=== PATIENT | female | born 1950 | race Caucasian/White ===

== ENCOUNTER → 2021-10-20 10:32 | Outpatient (BNVA) | payer MEDICARE, SELFPAY | PROVIDERS: Visit Provider Family Medicine | DX: E78.00 Pure hypercholesterolemia, unspecified (principal); I10 Essential (primary) hypertension; E03.8 Other specified hypothyroidism; M19.90 Unspecified osteoarthritis, unspecified site | CPT/HCPCS: 80053; 80061; 84443; 85025 ==

== ENCOUNTER 2021-11-30 08:54 | Outpatient (CLI) | payer MEDICARE, SELFPAY ==
--- NOTE | 2021-11-30 09:30 | MR_ITS ---
WS: [id number] MRI HEAD WITHOUT CONTRAST TECHNIQUE: Sagittal T1, T2 axial, T2 axial FLAIR, axial and coronal T1 images, axial susceptibility w eighted imaging, axial diffusion weighted images, and coronal T2 images were obtained. CLINICAL INFORMATION: changes in vision and headaches COMPARISON: None. FINDINGS: No evidence of restricted diffusion to suggest acute ischemia. Ventricular system and basal cisterns are patent. Mild small vessel changes. Moderate parenchymal volume loss. Normal posterior fossa. Norm al vascular flow voids at the skull base. No extra-axial fluid collections. No evidence of mass or ma ss effect. Paranasal sinuses and mastoid air cells well aerated. No hemosiderin on susceptibly weighted images. Mild to moderate symmetric atrophy temporal lobes and hippocampal formations. Normal optic chiasm and pituitary infundibulum. Paranasal sinuses and mastoid air cells well aerated. Mild mucosal thickening in the ethmoid air cells. MR/MR head wo con* [id number] IMPRESSION: 1. No evidence of restricted diffusion to suggest acute ischemia. 2. Mild small vessel changes with moderate parenchymal volume loss. 3. No hemosiderin on susceptibly weighted images. 4. Mild/moderate symmetric atrophy atrophy temporal lobes and hippocampal form ations. 5. No other significant findings.
== END 2021-11-30 08:55 | disposition home or self-care (01) ==
PROVIDERS: Visit Provider Family Medicine
DX: S09.90XA Unspecified injury of head, initial encounter (principal); H54.7 Unspecified visual loss; R42 Dizziness and giddiness; R51.9 Headache, unspecified; G31.9 Degenerative disease of nervous system, unspecified
CPT/HCPCS: 70551

== ENCOUNTER → 2021-12-21 11:12 | Outpatient (BNVA) | payer MEDICARE, SELFPAY | PROVIDERS: Referring Provider Family Medicine; Visit Provider Nurse Practitioner | DX: H93.A9 Pulsatile tinnitus, unspecified ear (principal); G44.329 Chronic post-traumatic headache, not intractable; Z87.891 Personal history of nicotine dependence | CPT/HCPCS: 99204 ==

== ENCOUNTER 2022-01-30 10:43 | Emergency (ER) | payer MEDICARE, SELFPAY ==
[2022-01-30 10:57] VITALS: BP 106/62; PULSE 109; RESP 16; TEMP 38.1; O2SAT 96; BMI 25.4
[2022-01-30 11:12] VITALS: BP 131/56; PULSE 103; O2SAT 94
--- NOTE | 2022-01-30 11:29 | ECG_ITS ---
[facility] Test Date: 2022-01-30 Pat Name: Juliana Rendon Department: Room: Gender: Female [employer]: : 1950 Requested By: Jayden Soni Order Number: [id number] Clyde MD: Jerrica Pang M.D. Measurements Intervals [place] Rate: 87 P: 63 MN: 151 QRS: 51 QRSD: 75 T: 56 QT: 354 QTc: 428 Interpretive Statements SINUS RHYTHM POSSIBLE LEFT ATRIAL ENLARGEMENT [-0.1mV P-WAVE IN V1/V2] SEPTAL MYOCARDIAL INFARCTION , OF INDETERMINATE AGE [40+ ms Q WAVE IN V1/V2] MODERATE T-WAVE ABNORMALITY, CONSIDER LATERAL ISCHEMIA [-0.1+ mV T-WAVE IN I/aVL/V5/V6] No previous ECG available for comparison Electronically Signed On 01-30-2022 19:03:10 CDT by Jerrica Pang M.D. [id number]
--- NOTE | 2022-01-30 11:29 | CTR_ITS ---
PROCEDURE INFORMATION: Exam: CT Angiography Head With Contrast, Arteriography Exam date and time: 01/30/2022 3:37 PM Age: 71 years old Clinical indication: Pain; Headache; Additional info: Concern for aneurysm TECHNIQUE: Imaging protocol: Computed tomography angiography of the head with contrast. Exam focused on the arteries. 3D rendering (Not supervised by radiologist): MIP and/or 3D reconstructed images were created by the technologist. Radiation optimization: All CT scans at this facility use at least one of these dose optimization techniques: automated exposure control; mA and/or kV adjustment per patient size (includes targeted exams where dose is matched to clinical indication); or iterative reconstruction. Contrast material: VISIPAQUE 320; Contrast volume: 95 ml; Contrast route: INTRAVENOUS (IV); COMPARISON: MR head wo con* [id number] 11/30/2021 10:27 AM RADIATION DOSE METRICS: Total DLP (mGy-cm): 2349.05 FINDINGS: ANTERIOR CIRCULATION: Right internal carotid artery: Unremarkable. Intracranial segment is patent with no significant stenosis. No aneurysm. Right middle cerebral artery: Unremarkable. No occlusion or significant stenosis. No aneurysm. Right anterior cerebral artery: Unremarkable. No occlusion or significant stenosis. No aneurysm. Left internal carotid artery: Unremarkable. Intracranial segment is patent with no significant stenosis. No aneurysm. Left middle cerebral artery: Unremarkable. No occlusion or significant stenosis. No aneurysm. Left anterior cerebral artery: Unremarkable. No occlusion or significant stenosis. No aneurysm. POSTERIOR CIRCULATION: Right vertebral artery: Unremarkable. No occlusion or significant stenosis. No aneurysm. Left vertebral artery: Unremarkable. No occlusion or significant stenosis. No aneurysm. Basilar artery: Unremarkable. No occlusion or significant stenosis. No aneurysm. Right posterior cerebral artery: Unremarkable. No occlusion or significant stenosis. No aneurysm. Left posterior cerebral artery: Unremarkable. No occlusion or significant stenosis. No aneurysm. Brain: No definite mass, mass effect, or midline shift. Cerebral ventricles: No ventriculomegaly. Bones/joints: Unremarkable. No acute fracture. Soft tissues: Unremarkable. PROCEDURE INFORMATION: Exam: CT Angiography Neck With Contrast Exam date and time: 01/30/2022 3:37 PM Age: 71 years old Clinical indication: Pain; Headache; Additional info: Concern for aneurysm TECHNIQUE: Imaging protocol: Computed tomography angiography of the neck with contrast. 3D rendering (Not supervised by radiologist): MIP and/or 3D reconstructed images were created by the technologist. Radiation optimization: All CT scans at this facility use at least one of these dose optimization techniques: automated exposure control; mA and/or kV adjustment per patient size (includes targeted exams where dose is matched to clinical indication); or iterative reconstruction. Contrast material: VISIPAQUE 320; Contrast volume: 95 ml; Contrast route: INTRAVENOUS (IV); COMPARISON: MR giovanna alicia* [id number] 11/30/2021 10:27 AM RADIATION DOSE METRICS: Total DLP (mGy-cm): 2349.05 FINDINGS: Right common carotid artery: No stenosis. No dissection or occlusion. Right internal carotid artery: No stenosis of the extracranial segment. No dissection or occlusion. Right external carotid artery: No occlusion or stenosis of the origin. Left common carotid artery: No stenosis. No dissection or occlusion. Left internal carotid artery: No stenosis of the extracranial segment. No dissection or occlusion. Left external carotid artery: No occlusion or stenosis of the origin. Right vertebral artery: No stenosis. No dissection or occlusion. Left vertebral artery: No stenosis. No dissection or occlusion. Soft tissues: Normal. No significant soft tissue swelling. Bones/joints: No acute fracture. CT/CT angio headneck* [id number] IMPRESSION: No large vessel stenosis or occlusion. IMPRESSION: No evidence of aneurysm. No stenosis or occlusion. REFERENCES: NASCET CRITERIA. The degree of internal carotid artery stenosis is based on NASCET criteria. Normal is no stenosis. Mild is less than 50% stenosis. Moderate is 50-69% stenosis. Severe is 70% to 99% stenosis. Total occlusion is no detectable patent lumen.
--- NOTE | 2022-01-30 11:31 | W.ED.FALL ---
HPI - Fall General: Chief Complaint: Fall Stated Complaint: fall/dizziness/buzzing in head/balance issues Time Seen by Provider: 01/30/22 11:21 History of Present Illness: Patient comes in with a buzzing sensation in her head. States that it has been there for a couple years constant. States that this morning when it was happening she felt weak and dizzy and had to sit down. States that she has had a head CT through her primary care physician and is supposed to be scheduled for CTA head and neck. Associated symptoms-after fall: Denies abdominal pain, chest pain, headache(s) or neck pain Review of Systems Const: Denies: fever(s) or body aches Eyes: Denies: change in vision or blurry vision ENMT: Denies: throat pain or odynophagia Card: Denies: chest pain or palpitations Resp: Denies: dyspnea or productive cough GI: Denies: abdominal pain, nausea or vomiting : Denies: flank pain or dysuria Musc: Denies: neck pain or back pain Skin/Breast: Denies: rash or pruritus Neuro: Denies: headache(s) or numbness in extremities Psych: Denies: anxiety or change in appetite Endo: Denies: polyuria or excessive sweating PFSH ED PFSH: Medical History Alteration in vision Arthritis Head trauma Headache above the eye region Hypercholesteremia Hypertension Hypothalamic hypothyroidism Vertigo Social History Smoking and tobacco status: former smoker Alcohol intake: former Physical Exam Const: COMMON NORMALS: no acute distress, patient oriented x3, healthy appearing and alert HENMT: COMMON NORMALS: normocephalic and atraumatic HEAD & SCALP: normocephalic and atraumatic Eye: COMMON NORMALS: Equal, round and reactive pupils present and EOMs intact bilaterally PUPIL: Yes Equal, round and reactive pupils present Neck/C-Spine: COMMON NORMALS: full ROM and supple Resp: COMMON NORMALS: normal respiratory effort, No retractions and No use of accessory muscles Cardio: COMMON NORMALS: regular rhythm RHYTHM: regular rhythm OTHER: Tachycardia GI: COMMON NORMALS: Normal to inspection, nondistended, normoactive bowel sounds present, Soft to palpation and non-tender PALPATION: Yes Soft to palpation Back/Pelvis: COMMON NORMALS: thoracic and lumbar spine normal to inspection and no thoracic nor lumbar tenderness Extremity: COMMON NORMALS: normal to inspection and full ROM Neuro: COMMON NORMALS: patient oriented x3 SENSORIUM/ORIENTATION: Yes alert Psych: COMMON NORMALS: mental status grossly normal and cooperative Skin: COMMON NORMALS: no rashes or lesions noted and no wounds GENERAL SKIN EXAM: no rashes or lesions noted Course Vital Signs: Vital signs: Vital Signs Temperature 100.6 F H 01/30/22 10:57 Pulse Rate 103 H 01/30/22 11:12 Respiratory Rate 16 01/30/22 10:57 Blood Pressure 131/56 01/30/22 11:12 Pulse Oximetry 94 01/30/22 11:12 MDM - Fall Medical Decision Making Patient comes in with a buzzing sensation in her head. States that it has been there for a couple years constant. States that this morning when it was happening she felt weak and dizzy and had to sit down. States that she has had a head CT through her primary care physician and is supposed to be scheduled for CTA head and neck. On physical exam she is tachycardic. She has a grossly normal neuro exam with no lateralizing symptoms. We will check labs, EKG, CTA head and neck, and reassess. On reassessment I talked to the patient about the test results. Will discharge home at this time with precautions to return for worsening or changing symptoms. Lab Data : 01/30/22 12:30 01/30/22 14:09 Radiology Impressions Head/Neck CTA 01/30/22 11:29 IMPRESSION: No large vessel stenosis or occlusion. IMPRESSION: No evidence of aneurysm. No stenosis or occlusion. REFERENCES: NASCET CRITERIA. The degree of internal carotid artery stenosis is based on NASCET criteria. Normal is no stenosis. Mild is less than 50% stenosis. Moderate is 50-69% stenosis. Severe is 70% to 99% stenosis. Total occlusion is no detectable patent lumen. Laboratory Results WBC 14.5 10^3/uL (4.0-10.0) H 01/30/22 12:30 RBC 4.05 10^6/uL (4.1-5.3) L 01/30/22 12:30 Hgb 12.5 g/dL (11.5-15.3) 01/30/22 12:30 Hct 37.7 % (37.0-47.0) 01/30/22 12:30 MCV 93.1 fl (81-99) 01/30/22 12:30 MCH 30.9 pg (28.0-34.0) 01/30/22 12:30 MCHC 33.2 g/dL (30.0-36.0) 01/30/22 12:30 RDW 13.0 % (12.1-15.1) 01/30/22 12:30 Plt Count 245 10^3/cmm (130-400) 01/30/22 12:30 MPV 9.6 fL (7.4-10.4) 01/30/22 12:30 Neut % (Auto) 79.6 % 01/30/22 12:30 Lymph % (Auto) 9.2 % 01/30/22 12:30 [place] % (Auto) 10.1 % 01/30/22 12:30 Eos % (Auto) 0.1 % 01/30/22 12:30 Baso % (Auto) 0.2 % 01/30/22 12:30 Neut # (Auto) 11.52 10^3/uL (1.8-7.7) H 01/30/22 12:30 Lymph # (Auto) 1.3 10^3/uL (0.8-4.8) 01/30/22 12:30 [place] # (Auto) 1.5 10^3/uL (0.2-0.9) H 01/30/22 12:30 Eos # (Auto) 0.0 10^3/uL (0.0-0.8) 01/30/22 12:30 Baso # (Auto) 0.0 10^3/uL (0.0-0.1) 01/30/22 12:30 Nucleated RBC % (auto) 0 % 01/30/22 12:30 Nucleated RBCs # 0.0 /100WBC 01/30/22 12:30 Sodium 139 mmol/L (136-145) 01/30/22 14:09 Potassium 3.6 mmol/L (3.5-5.1) 01/30/22 14:09 Chloride 104 mmol/L (98-107) 01/30/22 14:09 Carbon Dioxide 20 mmol/L (22-29) L 01/30/22 14:09 Anion Gap 18.6 (5-19) 01/30/22 14:09 BUN 14 mg/dL (8-23) 01/30/22 14:09 Creatinine 1.0 mg/dL (0.5-0.9) H 01/30/22 14:09 GFR Calculation 54.8 mL/min (90-130) L 01/30/22 14:09 Glucose 112 mg/dL (65-115) 01/30/22 14:09 Calculated Osmolality 289 mOsm/kg (285-295) 01/30/22 14:09 Calcium 8.5 mg/dL (8.5-10.5) 01/30/22 14:09 Total Bilirubin 0.8 mg/dL (0.15-1.2) 01/30/22 14:09 AST 15 U/L (0-32) 01/30/22 14:09 ALT 14 U/L (0-33) 01/30/22 14:09 Alkaline Phosphatase 66 IU/L (35-105) 01/30/22 14:09 NT-Pro-B Natriuret Pep Cancelled 01/30/22 14:09 Total Protein 8.0 g/dL (6.6-8.7) 01/30/22 14:09 Albumin 3.9 g/dL (3.5-5.2) 01/30/22 14:09 Globulin 4.1 g/dL (1.3-4.6) 01/30/22 14:09 Discharge Plan Discharge Patient Disposition: Home Clinical Impression: Dizziness Condition: Stable Prescriptions: No Action omeprazole 20 mg capsule,delayed release(DR/EC) 20 mg PO DAILY 0RF gabapentin 600 mg tablet 600 mg PO BID 0RF levothyroxine 88 mcg tablet 88 mcg PO DAILY 0RF losartan 100 mg tablet 100 mg PO DAILY 0RF meloxicam 15 mg tablet 15 mg PO DAILY 0RF simvastatin 20 mg tablet 20 mg PO DAILY 0RF multivitamin with minerals [Hair,Skin and Nails] Tablet 1 tab PO DAILY 0RF amitriptyline 25 mg tablet 25 mg PO BEDTIME Qty: 30 2RF alprazolam 0.5 mg tablet 0.5 mg PO .bed time PRN (Reason: sleep) Qty: 30 2RF Rx Instructions: recommend no more than 4 nights/week cyanocobalamin (vitamin B-12) 1,000 mcg/mL solution 1,000 mcg IM DAILY Qty: 10 1RF Discharge Orders: Discharge ED (Routine); Ordered 01/30/22 Ordered By: Jayden Soni Referrals: Aldo Diaz MD [Primary Care Provider] - Coding Level of Care Code ED Tool Grinder Operator External for Chg Fwd Exam Comprehensive
[2022-01-30] MEDS: sodium chloride 0.9% 500 ML 999 ML IV (12:27)
[2022-01-30 12:36] LABS: Basophils % 0.2 %; Eosinophils % 0.1 %; Hematocrit 37.7 % (37.0-47.0); Hemoglobin 12.5 g/dL (11.5-15.3); Lymphocytes # 1.3 10^3/uL (0.8-4.8); Lymphocytes % 9.2 %; Mean Corpuscular HGB Conc 33.2 g/dL (30.0-36.0); Mean Corpuscular Hemoglobin 30.9 pg (28.0-34.0); Mean Corpuscular Volume 93.1 fl (81-99); Mean Platelet Volume 9.6 fL (7.4-10.4); Monocytes # 1.5 10^3/uL (0.2-0.9); Monocytes % 10.1 %; Neutrophils # 11.52 10^3/uL (1.8-7.7); Neutrophils % 79.6 %; Nucleated Red Blood Cells % 0 %; Platelet Count 245 10^3/cmm (130-400); Red Blood Count 4.05 10^6/uL (4.1-5.3); White Blood Count 14.5 10^3/uL (4.0-10.0)
[2022-01-30 15:13] LABS: Alanine Aminotransferase 14 U/L (0-33); Albumin Level 3.9 g/dL (3.5-5.2); Alkaline Phosphatase 66 IU/L (35-105); Anion Gap 18.6 (5-19); Aspartate Amino Transferase 15 U/L (0-32); Blood Urea Nitrogen 14 mg/dL (8-23); Calcium 8.5 mg/dL (8.5-10.5); Carbon Dioxide 20 mmol/L (22-29); Chloride 104 mmol/L (98-107); Globulin 4.1 g/dL (1.3-4.6); Glomerular Filtration Rate 54.8 mL/min (90-130); Glucose 112 mg/dL (65-115); Osmolality Calculated 289 mOsm/kg (285-295); Potassium 3.6 mmol/L (3.5-5.1); Sodium 139 mmol/L (136-145); Total Bilirubin 0.8 mg/dL (0.15-1.2)
[2022-01-30] MEDS: iodixanol 320 mg/mL 100mL Btl IV (15:43)
== END 2022-01-30 17:20 | disposition home or self-care (01) ==
PROVIDERS: Emergency Provider Emergency Medicine; PCP Family Medicine
DX: R42 Dizziness and giddiness (principal); R51.9 Headache, unspecified; R26.89 Other abnormalities of gait and mobility; R53.1 Weakness
CPT/HCPCS: 70496; 70498; 80053; 85025; 93005; 96360; 99284; J7040; Q9967

== ENCOUNTER → 2022-04-27 14:29 | Outpatient (BNVA) | payer MEDICARE, SELFPAY | PROVIDERS: PCP Family Medicine; Visit Provider Family Medicine | DX: E78.00 Pure hypercholesterolemia, unspecified (principal); E03.8 Other specified hypothyroidism; I10 Essential (primary) hypertension; M47.812 Spondylosis without myelopathy or radiculopathy, cervical region; M47.816 Spondylosis without myelopathy or radiculopathy, lumbar region; G47.00 Insomnia, unspecified | CPT/HCPCS: 80053; 80061; 84443 ==

== ENCOUNTER → 2022-05-10 13:21 | Outpatient (BNVA) | payer MEDICARE, SELFPAY | PROVIDERS: PCP Family Medicine; Visit Provider Family Medicine | DX: Z00.00 Encounter for general adult medical examination without abnormal findings (principal) | CPT/HCPCS: 82270 ==

== ENCOUNTER → 2023-01-27 08:41 | Outpatient (BNVA) | payer MEDICARE, SELFPAY | PROVIDERS: PCP Family Medicine; Visit Provider Family Medicine | DX: E53.8 Deficiency of other specified B group vitamins (principal); E03.8 Other specified hypothyroidism; G47.00 Insomnia, unspecified | CPT/HCPCS: 82607; 84443 ==

== ENCOUNTER → 2023-05-25 13:09 | Outpatient (BNVA) | payer MEDICARE, SELFPAY | PROVIDERS: PCP Family Medicine; Visit Provider Family Medicine | DX: B37.31 Acute candidiasis of vulva and vagina (principal); N95.2 Postmenopausal atrophic vaginitis | CPT/HCPCS: 81000 ==

== ENCOUNTER 2023-08-17 12:05 | Outpatient (CLI) | payer MEDICARE, MEDICAID, SELFPAY ==
--- NOTE | 2023-08-17 12:45 | USR_ITS ---
PROCEDURE INFORMATION: Exam: US Nonobstetric Pelvis; Complete Exam date and time: 08/17/2023 1:06 PM Age: 73 years old Clinical indication: Pelvic pain; Additional info: N93.9 - abnormal uterine and vaginal bleeding, unspecified TECHNIQUE: Imaging protocol: Transabdominal pelvic nonobstetric ultrasound. Complete exam. Real time ultrasound with image documentation. COMPARISON: No relevant prior studies available. FINDINGS: Uterus: Uterus is normal. Endometrial stripe is normal. Endometrial stripe measures 3 mm. Uterus measures 5.7 x 2.4 x 3.6 cm. Right ovary/adnexa: Not visualized. Left ovary/adnexa: Not visualized. Probable cystic structure within the left adnexal region measuring 2.5 x 2.4 x 2.6 cm. Intraperitoneal space: No intraperitoneal fluid. Urinary bladder: Normal. US/US pelvic complete* [id number] IMPRESSION: No acute findings.
== END 2023-08-17 12:06 | disposition home or self-care (01) ==
LOC: RAD 12:06
PROVIDERS: PCP Family Medicine; Visit Provider Family Medicine
DX: N93.9 Abnormal uterine and vaginal bleeding, unspecified (principal); N95.2 Postmenopausal atrophic vaginitis
CPT/HCPCS: 76856

== ENCOUNTER → 2023-09-28 16:36 | Outpatient (BNVA) | payer MEDICARE, MEDICAID, SELFPAY | PROVIDERS: PCP Family Medicine; Visit Provider Family Medicine | DX: I10 Essential (primary) hypertension (principal); E03.8 Other specified hypothyroidism; E78.00 Pure hypercholesterolemia, unspecified; Z12.83 Encounter for screening for malignant neoplasm of skin | CPT/HCPCS: 80053; 80061; 84443; 85025 ==

== ENCOUNTER → 2024-03-13 09:04 | Outpatient (BNVA) | payer MEDICARE, MEDICAID, SELFPAY | PROVIDERS: PCP Family Medicine; Visit Provider Podiatrist Foot & Ankle Surgery | DX: M79.671 Pain in right foot (principal); M79.672 Pain in left foot | CPT/HCPCS: 73630; 99203 ==

== ENCOUNTER → 2024-06-28 15:33 | Outpatient (BNVA) | payer MEDICARE, MEDICAID, SELFPAY | PROVIDERS: PCP Family Medicine; Visit Provider Family Medicine | DX: I10 Essential (primary) hypertension (principal); E78.00 Pure hypercholesterolemia, unspecified | CPT/HCPCS: 80053; 84443; 85025 ==

== ENCOUNTER → 2024-10-30 09:52 | Outpatient (BNVA) | payer MEDICARE, MEDICAID, SELFPAY | PROVIDERS: PCP Family Medicine; Visit Provider Family Medicine | DX: E03.8 Other specified hypothyroidism (principal) | CPT/HCPCS: 84443 ==

== ENCOUNTER → 2025-05-02 15:06 | Outpatient (BNVA) | payer MEDICARE, MEDICAID, SELFPAY | PROVIDERS: PCP Family Medicine; Visit Provider Family Medicine | DX: I10 Essential (primary) hypertension (principal) | CPT/HCPCS: 80053; 85025 ==

== ENCOUNTER → 2025-06-19 15:41 | Outpatient (BNVA) | payer MEDICARE, MEDICAID, SELFPAY | PROVIDERS: PCP Family Medicine; Visit Provider Family Medicine | DX: J45.909 Unspecified asthma, uncomplicated (principal) | CPT/HCPCS: 85025 ==